=== PATIENT | female | born 1935 | race Caucasian/White ===

== ENCOUNTER 2016-08-24 15:16 | Inpatient (IN) | payer MEDICARE ==
--- NOTE | ~2016-08-24 | DS ---
Unit #: [id number] #: [id number] Patient: WILLIAM JHAVERI [id number] [address] [address] [id number] I MR#: [id number] NAME: WILLIAM JHAVERI ROOM: [facility] Age: 80 Sex: F Admission Date: 08/24/2016 : 1935 Discharge Date: 08/30/2016 Attending Physician: Yulissa Bradford M.D. Primary Care Physician: Josue Monreal M.D. DISCHARGE SUMMARY SUMMARY DATE OF 08/30/2016. PRINCIPAL DIAGNOSES 1. Acute on chronic hypoxic respiratory failure, multifactorial. 2. Aspiration pneumonia left lower lobe. 3. 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 4. Severe kyphoscoliosis. 5. Acute exacerbation of chronic obstructive pulmonary disease. 6. Acute on chronic systolic congestive heart failure with ejection fraction of 45%-50%. 7. Severe dysphagia. 8. Recurrent mucus plugging. 9. Tracheal tear following intubation. 10. Hypokalemia. 11. Hypomagnesemia. 12. Normocytic anemia. 13. Moderate dementia. 14. Immobility. 15. Rheumatoid arthritis. 16. History of SVT. 17. Hypertension. 18. Gastroesophageal reflux disease. CONSULTANTS Dr. Strange, pulmonology. PROCEDURES PERFORMED 1. STAT intubation on 08/27/2016. 2. Bronchoscopy on 08/27/2016 with a tear, 2 x 3 cm in mid trachea. Bilateral thick mucus plugs noted, primarily in the left lower lobe. 3. Right IJ central venous catheter placement, which occurred without complication. DIAGNOSTIC DATA IMAGING: Chest x-ray on 08/24/2016 with findings of severe kyphoscoliosis. Density of the bilateral lung bases noted. These are consistent with atelectasis versus infiltrate. CLINICAL HISTORY/HOSPITAL COURSE Ms. Jhaveri was a nice 80-year-old female who was a long-term resident of [facility]. She presented to the emergency department Unit #: [id number] #: [id number] Patient: WILLIAM JHAVERI feeling short of breath. Please refer to history and physical for further details. Chest x-ray in the emergency department revealed atelectasis versus infiltrate. White blood cell count was found to be only mildly elevated at 10.8 and lactic acid was normal. The patient was given vancomycin, Zosyn, tobramycin in the emergency room and was subsequently admitted. The patient was initially admitted to intermediate level, but unfortunately developed some worsening hypoxia and was placed in the ICU. Unfortunately, despite aggressive suctioning and antibiotic administration the patient abruptly developed mucus plugging on the , requiring emergent intubation. Bronchoscopy was done and mucus plugs were removed. The patient did well on the ventilator and was subsequently extubated on the . However, approximately one hour following extubation the patient developed recurrent increasing dyspnea, even though her oxygen saturations were in the mid to high 90s on 4 liters. She also had significant respiratory secretions. The patient's condition was discussed extensively with the family. Ultimately they opted for comfort measures, including full DNR including a do not intubate. The patient was made comfortable and subsequently on 08/30/2016 at 04:13 in the morning. Dictated by... Yulissa Bradford M.D. MILTON/raj TD: 08/30/2016 10:15 JOB #: [id number] DISCHARGE SUMMARY X Yulissa Bradford MD DISCHARGE SUMMARY
--- NOTE | ~2016-08-24 | HP ---
Unit #: [id number] #: [id number] Patient: WILLIAM JHAVERI [id number] [facility]. [place], [place] [address] [id number] I MR#: [id number] NAME: WILLIAM JHAVERI ROOM: [address] Age: 80 Sex: F Admission Date: 08/24/2016 : 1935 Attending Physician: Jaye Gaytan M.D. Primary Care Physician: Josue Monreal M.D. HISTORY AND PHYSICAL CHIEF COMPLAINT Short of air. HISTORY OF PRESENT ILLNESS The patient is a 80-year-old female with a past medical history of dysphagia, congestive heart failure, SVT, rheumatoid arthritis, hypertension, osteoarthritis, who presented to the emergency department from the senior living for evaluation of the above. History is obtained from discussion with ER staff, chart review, as well as from the patient. I also spoke with the patient's daughters who are at bedside. Apparently, she was sent from the senior living for increasing shortness of breath and low oxygen saturations. Per EMS report, oxygen saturations were in the mid 70s before starting the patient on oxygen. Upon arrival in the emergency department, the patient's oxygen saturation was 96% on 4 liters. Of note, the patient was hospitalized at [facility] 06/28 through 07/07/2016 for acute respiratory failure requiring intubation thought to be secondary to aspiration pneumonia. Family states that she has not really ever returned to baseline as far as her breathing status. She has had persistent congestion and cough. She has not been taking anything by mouth. She does have a PEG tube. They are not aware of any fever at the senior living. In the emergency department, chest x-ray was done and showed increased airspace disease involving the left base concerning for possible superimposed pneumonia. Laboratory notable for white blood cell count of 10.8; lactic acid 1.5. She was given vancomycin, Zosyn, and tobramycin in the emergency department. She is being admitted to [facility] for evaluation and further treatment. PAST MEDICAL HISTORY 1. Admission to [facility] 06/28 through 07/07/2016 for respiratory failure requiring intubation. She was septic from pneumonia, likely aspiration. 2. History of dysphagia, status post PEG tube placement. 3. Congestive heart failure. The patient had an echocardiogram during the last admission in June 2016 that showed an ejection fraction of 45% to 50% per the discharge summary. She was apparently seen by Dr. Jimenez for SVT. 4. History of SVT. 5. Rheumatoid arthritis. 6. Hypertension. 7. Osteoarthritis. 8. GERD. Unit #: [id number] #: [id number] Patient: WILLIAM JHAVERI 9. COPD not on home oxygen. Patient has seen Dr. Hutchinson in the past. PAST SURGICAL HISTORY 1. PEG tube placement. 2. Thyroid surgery. 3. Hysterectomy. 4. Left hip surgery. ALLERGIES No known allergies. HOME MEDICATIONS 1. Zyrtec 5 mg daily. 2. Artificial Tears q.4 h. p.r.n. 3. Aspirin 81 mg daily. 4. Vitamin B12 1000 mcg monthly. 5. Donepezil 10 mg h.s. 6. Ipratropium nebulized q.i.d. p.r.n. 7. Multivitamin daily. 8. Tylenol 650 q.4 h. p.r.n. 9. Mucinex 600 mg daily p.r.n. SOCIAL HISTORY The patient is at a senior living. She walks with a walker. No tobacco or alcohol use. The patient is a DNR but would want to be intubated for respiratory compromise. I confirmed this with the patient's daughter and power of attorney recruiter. FAMILY HISTORY Notable for coronary artery disease in her brother. REVIEW OF SYSTEMS A complete review of systems is negative except as indicated in the HPI. Family states that at baseline the patient would not be oriented to time. PHYSICAL EXAMINATION VITAL SIGNS: Temperature 98.2, pulse 89, respirations 18, blood pressure 143/82, oxygen saturation is 96% on 4 liters but was reportedly in the 70s on room air at the senior living. GENERAL: The patient is a female who is awake and alert. HEENT: Head is atraumatic. Mucous membranes are moist. NECK: Supple. Trachea is midline. LUNGS: Scattered rhonchi. Breathing is mildly labored. HEART: Regular rate and rhythm. ABDOMEN: Soft. Bowel sounds present in all four quadrants. She does have a PEG tube. EXTREMITIES: Nontender with no pedal edema. NEUROLOGIC: Patient is awake and alert. She is oriented to person and place at baseline per family. She is moving all extremities. PSYCHIATRIC: Mood and affect are normal. Patient is cooperative. SKIN OF EXAMINED AREAS: Warm and dry. DIAGNOSTIC STUDIES LABORATORY: Arterial blood gas shows pH 7.401, pCO2 of 44, pO2 of 82.7 on 4 liters. Complete blood count notable for white blood cell count of 10.8. Troponin less than 0.05. Lactic acid 1.5. Comprehensive metabolic panel is notable for chloride of 97, glucose 114, BUN 29, creatinine 0.8. Unit #: [id number] #: [id number] Patient: WILLIAM JHAVERI IMAGING: Chest x-ray shows chronic densities at bilateral bases with increased airspace disease involving the left base concerning for superimposed pneumonia. CARDIOVASCULAR: EKG shows normal sinus rhythm with sinus arrhythmia at a rate of 79 beats per minute. ASSESSMENT The patient is a 80-year-old female with: 1. Acute respiratory failure, hypoxic. 2. Healthcare-associated pneumonia. The patient received vancomycin, Zosyn and tobramycin in the emergency department. 3. Dysphagia, status post PEG tube placement. 4. Chronic obstructive pulmonary disease. The patient is not on home oxygen. She has seen Dr. Hutchinson in the past. 5. History of supraventricular tachycardia. 6. Congestive heart failure with ejection fraction as noted above. 7. Rheumatoid arthritis. 8. Hypertension. 9. Osteoarthritis. 10. Gastroesophageal reflux disease. PLAN 1. Admit to intermediate level. 2. N.p.o. 3. Normal saline at 75 mL per hour. 4. Supplemental oxygen 2-4 liters to maintain saturations greater than 92%. 5. Blood cultures x2. 6. Sputum culture and sensitivity. 7. Procalcitonin level. 8. Streptococcal and legionella urine antigens. 9. Vancomycin IV, tobramycin IV, Zosyn IV pending further workup. 10. DuoNeb q.4 h. 11. Tylenol 650 per PEG tube q.6 h. p.r.n. 12. Strict I's and O's. 13. Daily weights. 14. Serial cardiac enzymes. 15. Consult Dr. Hutchinson regarding acute respiratory failure. 16. Check BNP. 17. Repeat labs in the morning. 18. SCDs for DVT prophylaxis. 19. Additional workup and consultants based on above. Dictated by Barry Singh/lisa TD: 08/24/2016 22:57 JOB #: [id number] Unit #: [id number] #: [id number] Patient: WILLIAM JHAVERI HISTORY AND PHYSICAL X Jaye Gaytan MD HISTORY AND PHYSICAL
--- NOTE | ~2016-08-24 | OR ---
Unit #: [id number] #: [id number] Patient: WILLIAM JHAVERI [id number] [facility]. [place], [place] [address] [id number] I MR#: [id number] NAME: WILLIAM JHAVERI ROOM: [facility] Date of Procedure: 08/27/2016 Admission Date: 08/24/2016 Surgeon: Juanjo Strange M.D. : 1935 Attending Physician: Yulissa Bradford M.D. Primary Care Physician: Josue Monreal M.D. PROCEDURE OPERATIVE NOTE PROCEDURE PERFORMED Diagnostic and therapeutic bronchoscopy with bronchial washing. INDICATIONS FOR PROCEDURE Respiratory failure and pneumonia. FINDINGS 1. Tear, 2 x 3 cm, in the mid trachea noted to be oozing fresh blood. 2. Bilateral thick mucous plugs mainly noted in the left lower lobe. COMPLICATIONS None. DESCRIPTION OF PROCEDURE An informed consent was obtained from the patient's daughter after explaining the benefits and risks of this procedure. Patient was prepped and positioned in proper way. Then, the bronchoscope was advanced through the ET tube to the level of the jaron and then into the right main bronchus and the right upper lobe, right lower lobe, and right middle lobe were examined; which appeared erythematous with large mucous plug in the right lower lobe, which was aspirated and lavaged. Then, bronchoscope was retracted and then readvanced into the left main bronchus and the left upper lobe, lingula, and left lower lobe were examined; which appeared also erythematous with mucous plugs in the left lower lobe and slightly in the lingula. The bronchoscope was retracted to the level of the jaron and then a large tear was noted covered by the ET tube. I pulled the ET tube slightly up and evaluated the trachea and, again, the tear was noted about to be 2 x 3 cm in size and oozing fresh blood. The ET tube again was passed beyond the tear for mainly tamponade and was placed 1.5 cm above the jaron. The bronchoscope was retracted out then and patient tolerated her procedure well with no immediate complications. Dictated by... Juanjo Strange M.D. EA/bharat Unit #: [id number] #: [id number] Patient: WILLIAM JHAVERI TD: 08/28/2016 07:20 JOB #: [id number] PROCEDURE OPERATIVE NOTE X JUANJO SALINAS MD PROCEDURE OPERATIVE NOTE
--- NOTE | ~2016-08-24 | CR72 ---
[facility] A Service of [facility] & [facility] RADIOLOGY TEXT RESULTS PATIENT: WILLIAM JHAVERI LOCATION: [place] [address] : [birth year] UNIT #: [id number] AGE: [address]: Yulissa Bradford MD SEX: F ORDER DR: [id number] [facility] [address] [place], [place] [address] [id number] I MR#: [id number] Acc #: [id number] NAME: WILLIAM JHAVERI : 1935 SEX: F STUDY DATE/TIME: 08/27/2016 6:35 UNIT: [facility] ROOM: [facility] STUDY DESCRIPTION: CR Chest Single View Portable Attending Physician: Yulissa Bradford M.D. Ordering Physician: Jaey Gaytan M.D. Primary Care Physician: Josue Monreal M.D. MEDICAL IMAGING REPORT This report is preliminary unless electronic signature is present EXAM Portable chest, 08/27/2016. HISTORY Respiratory failure. Pneumonia for 3 days. FINDINGS Today's portable view of the chest is compared with yesterday's study. The atelectasis in the left lung has diminished significantly. Now, there is only left base atelectasis, whereas before, most of the left lung was dense. There are low lung volumes. The right lung is clear. There is marked kyphosis. Dictated by... Josef Kwon M.D. THIS IS AN ELECTRONICALLY VERIFIED REPORT Josef Kwon M.D. at 08/27/2016 2:02 PM DAPHNEY/ana TD: 08/27/2016 13:48 JOB #: [id number] MEDICAL IMAGING REPORT COPY
--- NOTE | ~2016-08-24 | OR ---
Unit #: [id number] #: [id number] Patient: WILLIAM JHAVERI [id number] [address] [id number] I MR#: [id number] NAME: WILLIAM JHAVERI ROOM: [facility] Date of Procedure: 08/27/2016 Admission Date: 08/24/2016 Surgeon: Juanjo Strange M.D. : 1935 Attending Physician: Yulissa Bradford M.D. Primary Care Physician: Josue Monreal M.D. PROCEDURE OPERATIVE NOTE PROCEDURE Right internal jugular central venous catheter placement with ultrasound guidance. INDICATION FOR PROCEDURE Respiratory distress. COMPLICATIONS None. DESCRIPTION OF THE PROCEDURE An informed consent was obtained from the patient's daughter after explaining the benefits and risks of this procedure. The patient was prepped and positioned in proper way and patient was cleaned with chlorhexidine and body drape was applied. With the ultrasound guidance, a needle was inserted in the right IJ until blood flow was obtained and a guidewire was inserted and the needle was removed. Then, a dilator was used to create a track for the catheter which was inserted over the guidewire and the guidewire was removed. The catheter was flushed appropriately and sutured in place. Then, Biopatch and clean dressing were applied. Stat chest x-ray confirmed placement with no immediate complications. Dictated by... Juanjo Strange M.D. EA/darius TD: 08/28/2016 07:36 JOB #: [id number] Unit #: [id number] #: [id number] Patient: WILLIAM JHAVERI PROCEDURE OPERATIVE NOTE X JUANJO SALINAS MD X PROCEDURE OPERATIVE NOTE
--- NOTE | ~2016-08-24 | FU ---
[facility] Nutrition Therapy DATE: 08/29/16 Patient: WILLIAM JHAVERI Physician: MAMTA Address: [address] [place] [address] Room/Bed: [address], Zip: [place] [address] Admit Date: 08/24/16 Date of : [birth year] Height: 4 10 Weight: 105 48 NUTRITION MONITORING/FOLLOW-UP: Reason: Nutrition follow up Anthropometrics: Ht: 4'10" ADm wt: 45.5 kg BMI: 21.0 Labs: K+ 2.9 Gluc 130 Ca++ 7.3 Mg++ 1.4 Accuchecks 116-125 BNP 293 Meds: Vitamin B12, MgSO4, KCl, levophed, MVI with minerals I&O's: 3971/780, last BM 08/26, PEG Skin: Bruise BUE Redness to coccyx/ LUE Estimated Nutrition Needs: 0444-6805 kcals (25-30 kcals/kg) 55-68 grams protein (1.2-1.5 grams/kg) Assessment: Chart reviewed, events noted. Pt was extubated this AM, and enteral nutrition was held for that. RN reports that prior to extubation, the pt's enteral nutrition was increased to goal of Jevity 1.5 @ 40 mL/hr. Per pump history report this AM, the pt has received 72% of goal volume of enteral nutrition over the past 24 hrs. Pt Dx: Inadequate enteral nutrition infusion RT EN recently advanced to goal and being AEB enteral nutrition is being held at this time. Intervention: 1. Enteral nutrition Monitoring, Evaluation and Goals: NOT BEING MET/ IN PROGRESS 1. Enteral nutrition; provide >80% estimated goal volume 2. Labs; WNL 3. Weight; prevent weight loss, promote lean body mass preservation 4. Skin; prevent breakdown Recommendations: 1. Once medically feasible, resume enteral nutrition with Jevity 1.5 @ 40 mL/hr x 24 hrs. 2. Ensure the HOB is upright at a minimum of 30-45 degrees during EN administration. 3. Replete electrolytes to WNL. [facility] Nutrition Therapy DATE: 08/29/16 Patient: WILLIAM JHAVERI Physician: MAMTA Address: [address] [place] [address] Room/Bed: [address], Zip: [place] [address] Admit Date: 08/24/16 Date of : [birth year] Height: 4 10 Weight: 105 48 Status: Pt is at moderate nutritional risk. RD will continue to follow. Respectfully, JERALD WOOD RD, LD Food and Nutritional Services [facility] cc: client file
--- NOTE | ~2016-08-24 | OR ---
Unit #: [id number] #: [id number] Patient: WILLIAM JHAVERI [id number] [address] [place], [place] [address] [id number] I MR#: [id number] NAME: WILLIAM JHAVERI ROOM: [facility] Date of Procedure: 08/27/2016 Admission Date: 08/24/2016 Surgeon: Juanjo Strange M.D. : 1935 Attending Physician: Yulissa Bradford M.D. Primary Care Physician: Josue Monreal M.D. PROCEDURE OPERATIVE NOTE PROCEDURE PERFORMED Direct laryngoscope intubation. INDICATIONS FOR PROCEDURE Respiratory distress. PREMEDICATIONS 1. Etomidate 20 mg IV x1. 2. Succinylcholine 50 mg IV x1. COMPLICATIONS None. DESCRIPTION OF PROCEDURE An informed consent was waived as the procedure was emergent and the patient was full code. Patient was prepped and positioned in a proper way and then, after premedicated with etomidate and succinylcholine, a size 3 Quiles blade was inserted and a good view of the vocal cord was obtained. View (1) was obtained. Then, ET tube, size 7.5 cm, was inserted past the vocal cords with no complications. Good bilateral breath sounds were auscultated and then good CO2 color monitor change was noted. Stat chest x-ray confirmed placement with no immediate complications. Dictated by... Juanjo Strange M.D. EA/bharat TD: 08/28/2016 07:10 JOB #: [id number] Unit #: [id number] #: [id number] Patient: WILLIAM JHAVERI PROCEDURE OPERATIVE NOTE X JUANJO SALINAS MD PROCEDURE OPERATIVE NOTE
--- NOTE | ~2016-08-24 | CR72 ---
[facility] A Service of [facility] & [facility] RADIOLOGY TEXT RESULTS PATIENT: WILLIAM JHAVERI LOCATION: [facility] [address] : [birth year] UNIT #: [id number] AGE: [address]: Henry Santoro MD SEX: F ORDER DR: [id number] [facility] [address] [place], [place] [address] [id number] I MR#: [id number] Acc #: [id number] NAME: WILLIAM JHAVERI : 1935 SEX: F STUDY DATE/TIME: 08/24/2016 14:55 UNIT: [facility] ROOM: [address] STUDY DESCRIPTION: CR Chest Single View Portable Attending Physician: Jaye Gaytan M.D. Ordering Physician: Ed Gael Holley M.D. Primary Care Physician: Josue Monreal M.D. MEDICAL IMAGING REPORT This report is preliminary unless electronic signature is present EXAM AP radiograph of the chest HISTORY Short of air. Short of air today. COPD, high blood pressure. AP radiograph of the chest presented. COMPARISON CT examination 07/08/2016 and chest radiograph 07/03/2016. FINDINGS Severe kyphoscoliosis. No definite acute bony abnormality. The heart is stably enlarged. Mediastinal contours stable. Extensive atherosclerotic arterial calcifications. Lung volumes low secondary to the marked kyphoscoliosis. Chronic densities at the bilateral lung bases probably atelectatic in nature. Some components of chronic fibrotic change may be present. Increased airspace disease at the left lung base concerning for possible superimposed pneumonia or an increase in atelectasis. Weight should be given the clinical assessment. Areas of linear scarring or atelectasis in the left midlung zone. Given the density at the left lung base, left pleural effusion not excluded. No definite right pleural effusion and no pneumothorax. Visualized bowel gas pattern in upper abdomen normal. There is a gastrostomy tube in place, partially visualized. Stable appearance of large hiatal hernia. Dictated by... Yossi Ortega M.D. THIS IS AN ELECTRONICALLY VERIFIED REPORT Yossi Ortega M.D. at 08/25/2016 8:[address] [facility] A Service of [facility] & [facility] RADIOLOGY TEXT RESULTS PATIENT: WILLIAM JHAVERI LOCATION: [facility] [address] : [birth year] UNIT #: [id number] AGE: [address]: Henry Santoro MD SEX: F ORDER DR: CARLOS/nomi TD: 08/24/2016 21:55 JOB #: [id number] MEDICAL IMAGING REPORT COPY
--- NOTE | ~2016-08-24 | EKG ---
PATIENT: WILLIAM JHAVERI UNIT #: [id number] Ventricular Rate: 79 BPM Atrial Rate: 79 BPM P-R Interval: 126 ms QRS Duration: 102 ms Q-T Interval: 408 ms QTC Calculation(Bezet): 467 ms P [place]: 9 degrees Calculated R [place]: -17 degrees Calculated T [place]: 121 degrees Diagnosis Line: Normal sinus rhythm with sinus arrhythmia Diagnosis Line: Minimal voltage criteria for LVH, may be normal Diagnosis Line: variant Diagnosis Line: Inferior infarct , age undetermined Diagnosis Line: ST and T wave abnormality, consider lateral ischemia Diagnosis Line: Abnormal ECG Diagnosis Line: When compared with ECG of 28-JUN-2016 06:14, Diagnosis Line: Significant changes have occurred Diagnosis Line: Confirmed by ROSALIA OLEA MD ([id number]) on 08/24/2016 Diagnosis Line: 4:49:01 PM INTERPRETING MD: LEFTY BUI
--- NOTE | ~2016-08-24 | A ---
[facility] Nutrition Therapy DATE: 08/25/16 Patient: WILLIAM JHAVERI Physician: MAMTA Address: [address] [place] [address] RD Room/Bed: [address] [place] [address], Zip: [place] [address] Admit Date: 08/24/16 Date of : 36 Height: 4 6 Weight: 100 45.5 NUTRITIONAL ASSESSMENT: REASON: Consult re: EN recommendations Admitting Dx: 80 y/o female admitted from custodial with SOA PMH: Dysphagia s/p PEG, CHF, HTN, OA, RA, GERD, COPD Anthropometrics: Ht: 54", Wt: 45.5 kg, BMI: 24.1 Labs: 08/24: Glucose 114, BUN 29 Meds: Abx, Nacl, MVI, Vit B12 I/O & Bowel function: No shift or admission assessment available yet Skin Integrity: No shift or admission assessment available yet Estimated Nutrition Needs: 5621-6661 kcals per day (25-30 kcals/kg) 55-64 g protein per day (1.2-1.4 g/kg) Fluids consistent with kcal needs or per MD Assessment: Chart reviewed, events noted. See admitting dx and PMH as stated above. Patient had recent admission to this facility 06/28-07/07/16 due to respiratory failure that required intubation, CXR showed possible PNA. No malnutrition risk assessment or shift/admission assessments available yet, RD reviewed past RD note and H&P, pt has PEG. RD received consult for EN recs while patient still in ED, awaiting bed. Spoke with ED nurse who reported the patient will be going to ICU once bed available. Per her H&P she has not been eating by mouth although she has been on a pureed diet at the [facility] in the past, current diet order states NPO. RD gave ED nurse verbal EN recs over the phone: Jevity 1.5 start @ 20 ml and increase by 10 ml q 4 hours until goal rate of 40 ml/hr is reached. ED nurse took RD's name and credentials down. See recs below, will follow once patient is transferred to ICU. Dx: Inadequate protein energy intake r/t nutrition not yet initiated AEB NPO status, need for EN. Intervention: Jevity 1.5 goal 40 ml/hr Monitoring, Evaluation and Goals: 1. Nutrition support consistent with estimated needs. [facility] Nutrition Therapy DATE: 08/25/16 Patient: WILLIAM JHAVERI Physician: MAMTA Address: [address] [place] [address] Room/Bed: [address] [facility], Zip: [place] [address] Admit Date: 08/24/16 Date of : 36 Height: 4 6 Weight: 100 45.5 2. Prevent unintentional weight loss. 3. Labs; WNL. 4. Skin; WNL. 5. GI; WNL. Monitor: Per protocol, criteria to determine if above goals met Recommendations: 1. Agree with RD recommendations for enteral nutrition based on 06/28/16 assessment. Once able start enteral nutrition with Jevity 1.5 @ 20 ml and increase by 10 ml q 4 hours until goal rate of 40 ml/hr is reached, to provide 1440 kcals, 61 g protein and 730 ml water. Once at goal rate add free water flushes per MD. 2. Patient is to remain NPO. RD will follow hospital course once admitted Moderate nutrition risk Respectfully, Penny Kyle, MAYE, LD [employer] [facility] [employer] cc: client file
--- NOTE | ~2016-08-24 | CR72 ---
[facility] A Service of [facility] & [facility] RADIOLOGY TEXT RESULTS PATIENT: WILLIAM JHAVERI LOCATION: [address] : 36 UNIT #: [id number] AGE: [address]: Yulissa Bradford MD SEX: F ORDER DR: [id number] [facility] [address] [place], [place] [address] [id number] I MR#: [id number] #: [id number] NAME: WILLIAM JHAVERI : 1935 SEX: F STUDY DATE/TIME: 08/28/2016 7:11 UNIT: [facility] ROOM: [facility] STUDY DESCRIPTION: CR Chest Single View Portable Attending Physician: Yulissa Bradford M.D. Ordering Physician: Yulissa Bradford M.D. Primary Care Physician: Josue Monreal M.D. MEDICAL IMAGING REPORT This report is preliminary unless electronic signature is present EXAM Frontal chest, 08/28/2016. INDICATIONS 80-year-old female with aspiration pneumonia, respiratory failure, short of air, symptoms began today, COPD. TECHNIQUE Frontal chest was performed. COMPARISON 08/27/2016 FINDINGS Right-sided central line unchanged. ET tube tip is about 1.3 cm above the level of the jaron and unchanged for technical factors. The heart is enlarged, but stable. Lung volumes are low. There are bilateral effusions with bibasilar atelectasis or infiltrates. Trace fluid or atelectasis associated with a minor fissure on the right. Opacities in the upper lung zone on the left and, to a lesser extent, on the right demonstrate slight improvement on the left and probably no change on the right. No pneumothorax. There is underlying scoliosis. IMPRESSION 1. Tubes and lines appear to be in satisfactory position. No pneumothorax. 2. Cardiomegaly with bibasilar atelectasis or infiltrates and superimposed effusions. 3. Slight improvement of opacities in the upper lung zone on the left. No significant change on the right. 4. Significant scoliosis. This probably accounts for what appears to be artifactual foreshortening of the tip of the ET tube with respect to the jaron. It still is above the level of the jaron as described STS. [facility] A Service of [facility] & [facility] RADIOLOGY TEXT RESULTS PATIENT: WILLIAM JHAVERI LOCATION: [facility]3 C[facility]CU3-21 : 36 UNIT #: [id number] AGE: [address]: Yulissa Bradford MD SEX: F ORDER DR: above. Dictated by... Miguel Ackerman M.D. THIS IS AN ELECTRONICALLY VERIFIED REPORT Miguel Ackerman M.D. at 08/28/2016 4:38 PM [place] TD: 08/28/2016 11:19 JOB #: [id number] MEDICAL IMAGING REPORT COPY
--- NOTE | ~2016-08-24 | CO ---
Unit #: [id number] #: [id number] Patient: WILLIAM JHAVERI [id number] [address] [place], [place] [address] [id number] I MR#: [id number] NAME: WILLIAM JHAVERI ROOM: [facility] Age: 80 Sex: F Admission Date: 08/24/2016 : 1935 Attending Physician: Henry Santoro M.D. Primary Care Physician: Josue Monreal M.D. Consultation Date: 08/25/2016 CONSULTATION REPORT REASON FOR CONSULT ICU management. CHIEF COMPLAINT Shortness of breath. HISTORY OF PRESENT ILLNESS This is a 80-year-old female with unfortunate past medical history significant for rheumatoid arthritis, severe deconditioning, congestive heart failure and dysphagia who presented to the emergency room from the long-term for evaluation of shortness of breath and respiratory distress. The patient is currently waking up to verbal stimuli and answering simple questions but unable to provide any history. Per the medical record, the patient was noted to be more dyspneic over the last few days with low oxygen saturation. Per EMS, the patient's sat was in the mid 70s when they arrived. The patient has a G-tube for feeding, but she is well known to aspirate. REVIEW OF SYSTEMS Unable to obtain. PAST MEDICAL HISTORY 1. Recurrent aspiration pneumonia. 2. Dysphagia. 3. Congestive heart failure. 4. History of SVT. 5. Rheumatoid arthritis. 6. Hypertension. 7. Osteoarthritis. 8. GERD. 9. COPD. PAST SURGICAL HISTORY 1. PEG tube placement. 2. Thyroid surgery. 3. Hysterectomy. 4. Left hip surgery. ALLERGIES No known drug allergies. Unit #: [id number] #: [id number] Patient: WILLIAM JHAVERI HOME MEDICATIONS 1. Zyrtec. 2. Artificial Tears. 3. Aspirin. 4. Vitamin B12. 5. Ipratropium. 6. Multivitamin. 7. Tylenol. 8. Mucinex. SOCIAL HISTORY The patient is a long-term resident. She walks with a walker. No history of alcohol or drug abuse. CODE STATUS The patient is DNR, but family is okay with vent support if she has a chance. FAMILY HISTORY Coronary artery disease. PHYSICAL EXAMINATION VITAL SIGNS: Blood pressure 143/82, oxygen saturation is 96. GENERAL: The patient appears in some distress. HEENT: Atraumatic, normocephalic. PERRLA. EOMI. NECK: Supple. No JVD. No lymphadenopathy. CHEST: Bilateral coarse rhonchi and crackles. HEART: S1, S2. No murmur, gallops or rubs. ABDOMEN: Soft, nontender. Feeding tube in place. EXTREMITIES: Contracted but no edema. CARE TRANSPORT NURSE: The patient is lethargic, but she is arousable to verbal stimuli. She answers simple questions, but she is unable to provide any consistent history. DIAGNOSTIC STUDIES LABS: BNP is 235. Troponin is 0.1. Creatinine is 0.8. White blood count 10.8. IMAGING: Chest x-ray is concerning for pneumonia, likely aspiration. ASSESSMENT 1. Acute hypoxic respiratory failure. 2. Pneumonia, likely aspiration/gram-negative. 3. Malnutrition. 4. Chronic anemia. 5. Deconditioning. PLAN 1. The patient is ill appearing and in respiratory distress. She is on high oxygen support. 2. She will be watched in the ICU very closely. Family wants the patient intubated for respiratory reasons, but they want her DNR. 3. Broad-spectrum antibiotics pending culture. 4. Will hold tube feeds, and when we start, we have to challenge her very softly and ensure that she has an aggressive bowel regimen. 5. Continue IV hydration and follow urine output. 6. Bronchodilator and mucolytics. 7. DVT prophylaxis. Unit #: [id number] #: [id number] Patient: WILLIAM JHAVERI NOTE: Critical care time spent on this patient was 31 minutes. Dictated by... Barry Person TD: 08/26/2016 09:40 JOB #: [id number] CONSULTATION REPORT X JUANJO SALINAS MD CONSULTATION REPORT
--- NOTE | ~2016-08-24 | CR72 ---
[facility] A Service of [facility] & [facility] RADIOLOGY TEXT RESULTS PATIENT: WILLIAM JHAVERI LOCATION: [address] : 36 UNIT #: [id number] AGE: [address]: Yulissa Bradford MD SEX: F ORDER DR: [id number] [facility] [address] [place], [place] [address] [id number] I MR#: [id number] Acc #: [id number] NAME: WILLIAM JHAVERI : 1935 SEX: F STUDY DATE/TIME: 08/27/2016 16:26 UNIT: [facility] ROOM: [facility] STUDY DESCRIPTION: CR Chest Single View Portable Attending Physician: Yulissa Bradford M.D. Ordering Physician: Thor Strange M.D. Primary Care Physician: Josue Monreal M.D. MEDICAL IMAGING REPORT This report is preliminary unless electronic signature is present EXAM Portable chest x-ray 08/28/2016 HISTORY Intubation. Central line placement. FINDINGS AP radiograph of the chest is compared to a study dated 08/27/2016 at 0635 hours. Patient has rather marked kyphoscoliosis. There is no acute-appearing bony abnormality. A right internal jugular central venous catheter terminates in the [id number] right atrium. For placement entirely within the superior vena cava, it should be withdrawn approximately 3 cm and reassessed radiographically. The tip of the endotracheal tube projects approximately 1 cm above the jaron. This somewhat distal termination may be in part artifactual and related to foreshortening caused by the patient's prominent kyphosis. Correlate clinically. This could best be further evaluated with true lateral view or steep oblique views. The heart is stably enlarged. The lungs are low in volume. Bronchovascular crowding. Abnormally increased interstitial densities extending from the central lung zones toward the periphery bilaterally. The appearance is not certain. The appearance is more pronounced and anticipated simply for low lung volumes and I favor that there is pulmonary edema with predominately interstitial involvement. There may be some minimal perihilar airspace involvement. Patient has a large hiatal hernia. There is dense left retrocardiac opacification probably related to soft tissue attenuation from the hiatal hernia, left basilar airspace disease., and left pleural fluid. There is no pneumothorax. Partially visualized gastrostomy tube has retention balloon at anticipated location of mid gastric body. [facility] A Service of [facility] RADIOLOGY TEXT RESULTS PATIENT: WILLIAM JHAVERI [facility] UNIT #: [id number] AGE: [address]: Yulissa Bradford MD SEX: F ORDER DR: Dictated by... Yossi Ortega M.D. THIS IS AN ELECTRONICALLY VERIFIED REPORT Yossi Ortega M.D. at 08/28/2016 5:26 PM Miguel TD: 08/28/2016 07:42 JOB #: [id number] MEDICAL IMAGING REPORT COPY
[2016-08-24 14:36] LABS: ARTERIAL BLD GAS O2 SATURATION 95.8 % (90.0-100.0); ARTERIAL BLOOD GAS CARBOXY HB 0.7 %sat (0.0-9.0); ARTERIAL BLOOD GAS HCO3 27.3 mmol/L; ARTERIAL BLOOD GAS MET HB 0.4 %sat (0.0-2.0); ARTERIAL BLOOD GAS PO2 82.7 mmHg (80.0-100); ARTERIAL BLOOD GAS pH 7.401 (7.350-7.450)
[2016-08-24 14:37] LABS: ARTERIAL BLOOD GAS ALLEN TEST NORMAL; ARTERIAL BLOOD GAS ART SITE RIGHT RADIAL; ARTERIAL BLOOD GAS DELIVERY NASAL CANNULA; ARTERIAL DRAW? YES
[~2016-08-24 15:16] MED LIST: ARICEPT PO; ARTIFICIAL TEAR15 M8 OU; ASPIRIN81 MG GT; BAYER CHEWABLE81 MG PO; BISOPROL PO; CLARITIN10 M2 PO; CLARITIN10 M3 DOB; COLACE PO; CYANOCOBAL1000 MCG/1 IJ; DOK100 MG PO; DONEPEZIL HCL10 MG GT; DONEPEZIL HCL10 MG PO; FIBERCON625 MG PO; IPRATROPIUM0.2 MG/ML NEB; LOVENOX30 MG/0.3 INJ; MIRALAX17 GM PO; MUCINEX100 MG/5 M GT; MULTI-VITAMIN1 EAC1 GT; NEURONTIN100 MG PO; NORCO1 TAB 10/3 PO; OCUVITE EYE +1 EACH PO; OCUVITE SOFTGEL1 CA1 PO; PLAQUENIL200 MG PO; PROTONIX PO; ST JOSEPH ASPIR81 M1 PO; TRAMADOL HCL50 M2 PO; TYLENOL325 M1 GT; ULTRAM PO; VITAMIN B-1000 MCG/1 INJ; ZEBETA5 M1 PO; ZITHROMAX PO; ZYRTEC5 M2 PO
[2016-08-24 15:20] LABS: BASOPHIL# 0.1 X10e3 (0-0.3); BASOPHIL% 0.6 % (0-2.5); HEMATOCRIT 36.8 % (35.0-45.0); HEMOGLOBIN 12.1 gm/dL (12.0-16.0); LYMPHOCYTE# 0.4 X10e3 (1.0-3.5); LYMPHOCYTE% 3.9 % (17.0-45.0); MEAN CELL VOLUME 86.4 FL (83-96); MEAN CORPUSCULAR HEMOGLOBIN 28.4 PG (28-34); MEAN CORPUSCULAR HGB CONC 32.8 g/dL (30-36); MEAN PLATELET VOLUME 9.5 FL (6.5-11.5); MONOCYTE# 0.8 X10e3 (0-1.0); MONOCYTE% 7.8 % (3.0-12.0); NEUTROPHIL# 9.4 X10e3 (1.5-7.1); NEUTROPHIL% 87.7 % (40-75); PLATELET COUNT 225 X10e3 (140-420); RED BLOOD COUNT 4.25 X10e (3.90-5.30); RED CELL DISTRIBUTION WIDTH 14.2 % (11.0-15.5); WHITE BLOOD COUNT 10.8 X10e3 (4.0-10.5)
[2016-08-24 15:22] LABS: DIFF IND NO
[2016-08-24 15:35] LABS: POC - CKMB 2.3 ng/mL (0.0-7.9); POC - TROPONIN 0.05 ng/mL (<=0.05)
[2016-08-24 15:44] LABS: ALBUMIN SERUM 3.8 g/dL (3.5-5.0); ALKALINE PHOSPHATASE 66 U/L (32-92); ALT (SGPT) 18 U/L (10-40); AST (SGOT) 24 U/L (10-42); BILIRUBIN,TOTAL 0.3 mg/dL (0.2-2.0); BLOOD UREA NITROGEN 29 mg/dL (9-23); BUN/CREATININE RATIO 36.25; CALCIUM SERUM 8.9 mg/dL (8.4-10.2); CARBON DIOXIDE 28 mmol/L (22-31); CHLORIDE 97 mmol/L (100-111); CREATININE SERUM 0.8 mg/dL (0.6-1.4); GLOM FILT RATE Estimated ABOVE60 mL/min (>60); GLUCOSE FASTING 114 mg/dL (70-110); POTASSIUM 4.4 mmol/L (3.5-5.1); PROTEIN TOTAL SERUM 7.4 g/dL (6.0-8.3); SODIUM 135 mmol/L (135-145)
[2016-08-24 15:49] LABS: BILIRUBIN, DIRECT <0.1 mg/dL (0.0-0.2); BILIRUBIN,INDIRECT 0.2 mg/dL (0.0-0.9)
[2016-08-24 18:55] LABS: POC - CKMB 1.8 ng/mL (0.0-7.9); POC - TROPONIN 0.06 ng/mL (<=0.05)
[2016-08-25 03:17] LABS: %MB 4.2 % (0.0-4.0); MB 3.1 ng/ml
[2016-08-25 07:46] LABS: %MB 2.6 % (0.0-4.0); MB 2.8 ng/ml
[2016-08-25 19:49] LABS: ARTERIAL BLOOD GAS CARBOXY HB 0.6 %sat (0.0-9.0); ARTERIAL BLOOD GAS MET HB 0.3 %sat (0.0-2.0)
[2016-08-25 19:50] LABS: ARTERIAL BLOOD GAS PCO2 51.7 mmHg (35.0-45.0)
[2016-08-25 19:51] LABS: ARTERIAL BLOOD GAS ALLEN TEST NORMAL; ARTERIAL BLOOD GAS ART SITE RIGHT RADIAL; ARTERIAL BLOOD GAS DELIVERY NON REBREATHER MASK; ARTERIAL DRAW? YES
[2016-08-26 05:26] LABS: HEMATOCRIT 32.7 % (35.0-45.0); HEMOGLOBIN 10.7 gm/dL (12.0-16.0); MEAN CELL VOLUME 87.3 FL (83-96); MEAN CORPUSCULAR HEMOGLOBIN 28.6 PG (28-34); MEAN CORPUSCULAR HGB CONC 32.7 g/dL (30-36); RED BLOOD COUNT 3.75 X10e (3.90-5.30); RED CELL DISTRIBUTION WIDTH 14.2 % (11.0-15.5); WHITE BLOOD COUNT 6.9 X10e3 (4.0-10.5)
[2016-08-26 06:48] LABS: BLOOD UREA NITROGEN 17 mg/dL (9-23); BUN/CREATININE RATIO 24.28; CALCIUM SERUM 8.4 mg/dL (8.4-10.2); CARBON DIOXIDE 25 mmol/L (22-31); CHLORIDE 110 mmol/L (100-111); CREATININE SERUM 0.7 mg/dL (0.6-1.4); GLOM FILT RATE Estimated ABOVE60 mL/min (>60); GLUCOSE FASTING 84 mg/dL (70-110); SODIUM 141 mmol/L (135-145)
[2016-08-27 05:50] LABS: BASOPHIL# 0.1 X10e3 (0-0.3); BASOPHIL% 0.8 % (0-2.5); EOSINOPHIL# 0.2 X10e3 (0-0.7); EOSINOPHIL% 2.6 % (0.0-7.0); HEMATOCRIT 34.4 % (35.0-45.0); HEMOGLOBIN 11.2 gm/dL (12.0-16.0); LYMPHOCYTE# 0.8 X10e3 (1.0-3.5); LYMPHOCYTE% 12.2 % (17.0-45.0); MEAN CELL VOLUME 86.2 FL (83-96); MEAN CORPUSCULAR HEMOGLOBIN 28.1 PG (28-34); MEAN CORPUSCULAR HGB CONC 32.6 g/dL (30-36); MONOCYTE# 0.5 X10e3 (0-1.0); MONOCYTE% 7.6 % (3.0-12.0); NEUTROPHIL# 5.2 X10e3 (1.5-7.1); NEUTROPHIL% 76.8 % (40-75); PLATELET COUNT 194 X10e3 (140-420); RED BLOOD COUNT 3.99 X10e (3.90-5.30); RED CELL DISTRIBUTION WIDTH 13.8 % (11.0-15.5); WHITE BLOOD COUNT 6.8 X10e3 (4.0-10.5)
[2016-08-27 05:59] LABS: DIFF IND NO
[2016-08-27 06:25] LABS: BLOOD UREA NITROGEN 14 mg/dL (9-23); CALCIUM SERUM 8.5 mg/dL (8.4-10.2); CARBON DIOXIDE 26 mmol/L (22-31); CHLORIDE 104 mmol/L (100-111); CREATININE SERUM 0.8 mg/dL (0.6-1.4); GLOM FILT RATE Estimated ABOVE60 mL/min (>60); GLUCOSE FASTING 112 mg/dL (70-110); POTASSIUM 3.8 mmol/L (3.5-5.1); SODIUM 135 mmol/L (135-145)
[2016-08-27 16:28] LABS: ARTERIAL BLOOD GAS CARBOXY HB 0.5 %sat (0.0-9.0); ARTERIAL BLOOD GAS HCO3 26.3 mmol/L; ARTERIAL BLOOD GAS MET HB 0.5 %sat (0.0-2.0); ARTERIAL BLOOD GAS PCO2 46.1 mmHg (35.0-45.0); ARTERIAL BLOOD GAS pH 7.365 (7.350-7.450)
[2016-08-27 16:29] LABS: ARTERIAL BLOOD GAS ALLEN TEST NORMAL; ARTERIAL BLOOD GAS ART SITE LEFT RADIAL; ARTERIAL BLOOD GAS DELIVERY VENT; ARTERIAL DRAW? YES
[2016-08-27 16:30] LABS: ARTERIAL BLOOD GAS VENT MODE A/C
[2016-08-27 17:13] LABS: URINE APPEARANCE CLEAR; URINE BILIRUBIN NEG (NEG); URINE BLOOD NEG (NEG); URINE COLOR YELLOW; URINE GLUCOSE NEG (NEG); URINE KETONE NEG (NEG); URINE LEUKOCYTE ESTERASE NEG (NEG); URINE NITRATE NEG (NEG); URINE PH 5.5 (5-8); URINE PROTEIN NEG (NEG)
[2016-08-27 17:45] LABS: CULTURE INDICATED? NO
[2016-08-28 04:15] LABS: ARTERIAL BLD GAS O2 SATURATION 96.2 % (90.0-100.0); ARTERIAL BLOOD GAS CARBOXY HB 0.8 %sat (0.0-9.0); ARTERIAL BLOOD GAS HCO3 26.6 mmol/L; ARTERIAL BLOOD GAS MET HB 0.9 %sat (0.0-2.0); ARTERIAL BLOOD GAS PO2 85.2 mmHg (80.0-100)
[2016-08-28 04:33] LABS: ARTERIAL BLOOD GAS ALLEN TEST NORMAL; ARTERIAL BLOOD GAS ART SITE LEFT RADIAL; ARTERIAL BLOOD GAS DELIVERY VENT; ARTERIAL BLOOD GAS VENT MODE AC; ARTERIAL DRAW? YES
[2016-08-28 05:15] LABS: BASOPHIL% 0.7 % (0-2.5); EOSINOPHIL# 0.1 X10e3 (0-0.7); EOSINOPHIL% 2.1 % (0.0-7.0); HEMATOCRIT 29.6 % (35.0-45.0); HEMOGLOBIN 9.9 gm/dL (12.0-16.0); LYMPHOCYTE# 1.2 X10e3 (1.0-3.5); MEAN CELL VOLUME 86.6 FL (83-96); MEAN CORPUSCULAR HEMOGLOBIN 28.9 PG (28-34); MEAN CORPUSCULAR HGB CONC 33.4 g/dL (30-36); MEAN PLATELET VOLUME 9.8 FL (6.5-11.5); MONOCYTE# 0.5 X10e3 (0-1.0); MONOCYTE% 8.8 % (3.0-12.0); NEUTROPHIL# 4.1 X10e3 (1.5-7.1); NEUTROPHIL% 68.4 % (40-75); PLATELET COUNT 170 X10e3 (140-420); RED BLOOD COUNT 3.42 X10e (3.90-5.30)
[2016-08-28 06:16] LABS: BLOOD UREA NITROGEN 15 mg/dL (9-23); BUN/CREATININE RATIO 18.75; CARBON DIOXIDE 26 mmol/L (22-31); CHLORIDE 106 mmol/L (100-111); CREATININE SERUM 0.8 mg/dL (0.6-1.4); GLOM FILT RATE Estimated ABOVE60 mL/min (>60); GLUCOSE FASTING 85 mg/dL (70-110); POTASSIUM 3.7 mmol/L (3.5-5.1); SODIUM 142 mmol/L (135-145)
[2016-08-28 06:34] LABS: DIFF IND NO
[2016-08-28 09:43] LABS: ARTERIAL BLD GAS O2 SATURATION 100.1 % (90.0-100.0)
[2016-08-29 03:47] LABS: ARTERIAL BLD GAS O2 SATURATION 98.4 % (90.0-100.0); ARTERIAL BLOOD GAS CARBOXY HB 0.5 %sat (0.0-9.0); ARTERIAL BLOOD GAS HCO3 25.7 mmol/L; ARTERIAL BLOOD GAS PCO2 39.1 mmHg (35.0-45.0); ARTERIAL BLOOD GAS pH 7.426 (7.350-7.450)
[2016-08-29 03:49] LABS: ARTERIAL BLOOD GAS ALLEN TEST NORMAL; ARTERIAL BLOOD GAS ART SITE LEFT RADIAL; ARTERIAL BLOOD GAS DELIVERY VENT; ARTERIAL BLOOD GAS VENT MODE AC; ARTERIAL DRAW? YES
[2016-08-29 04:47] LABS: BASOPHIL% 0.6 % (0-2.5); DIFF IND NO; EOSINOPHIL# 0.4 X10e3 (0-0.7); EOSINOPHIL% 5.9 % (0.0-7.0); HEMATOCRIT 27.1 % (35.0-45.0); LYMPHOCYTE# 0.9 X10e3 (1.0-3.5); LYMPHOCYTE% 14.7 % (17.0-45.0); MEAN CORPUSCULAR HEMOGLOBIN 28.5 PG (28-34); MEAN CORPUSCULAR HGB CONC 33.2 g/dL (30-36); MEAN PLATELET VOLUME 9.5 FL (6.5-11.5); MONOCYTE# 0.6 X10e3 (0-1.0); MONOCYTE% 9.5 % (3.0-12.0); NEUTROPHIL# 4.3 X10e3 (1.5-7.1); NEUTROPHIL% 69.3 % (40-75); PLATELET COUNT 153 X10e3 (140-420); RED BLOOD COUNT 3.16 X10e (3.90-5.30); WHITE BLOOD COUNT 6.2 X10e3 (4.0-10.5)
[2016-08-29 06:05] LABS: BLOOD UREA NITROGEN 10 mg/dL (9-23); BUN/CREATININE RATIO 16.66; CALCIUM SERUM 7.3 mg/dL (8.4-10.2); CARBON DIOXIDE 26 mmol/L (22-31); CHLORIDE 107 mmol/L (100-111); CREATININE SERUM 0.6 mg/dL (0.6-1.4); GLOM FILT RATE Estimated ABOVE60 mL/min (>60); GLUCOSE FASTING 130 mg/dL (70-110); SODIUM 137 mmol/L (135-145)
[2016-08-29 06:14] LABS: POTASSIUM 2.9 mmol/L (3.5-5.1)
== END 2016-08-30 04:13 | disposition expired | DRG 208 ==
LOC: CED 15:16 → CEDOF 19:00 → CICCU3 08-25 23:35
PROVIDERS: Emergency Medicine; Family Medicine; Internal Medicine; Internal Medicine Pulmonary Disease
PROC: 5A1945Z Respiratory Ventilation, 24-96 Consecutive Hours (ICD-10-PCS; 2016-08-27)
PROC: 05HM33Z Insertion of Infusion Device into Right Internal Jugular Vein, Percutaneous Approach (ICD-10-PCS; 2016-08-27)
PROC: B543ZZA Ultrasonography of Right Jugular Veins, Guidance (ICD-10-PCS; 2016-08-27)
PROC: 0BCB8ZZ Extirpation of Matter from Left Lower Lobe Bronchus, Via Natural or Artificial Opening Endoscopic (ICD-10-PCS; 2016-08-27)
PROC: 0BH18EZ Insertion of Endotracheal Airway into Trachea, Via Natural or Artificial Opening Endoscopic (ICD-10-PCS; principal; 2016-08-27 15:51)
DX: J96.21 Acute and chronic respiratory failure with hypoxia (principal); J69.0 Pneumonitis due to inhalation of food and vomit; I50.23 Acute on chronic systolic (congestive) heart failure; J44.0 Chronic obstructive pulmonary disease with (acute) lower respiratory infection; J44.1 Chronic obstructive pulmonary disease with (acute) exacerbation; S11.021A Laceration without foreign body of trachea, initial encounter; E46 Unspecified protein-calorie malnutrition; R13.10 Dysphagia, unspecified; T17.890A Other foreign object in other parts of respiratory tract causing asphyxiation, initial encounter; J98.4 Other disorders of lung; M41.9 Scoliosis, unspecified; I11.0 Hypertensive heart disease with heart failure; X58.XXXA Exposure to other specified factors, initial encounter; Y84.8 Other medical procedures as the cause of abnormal reaction of the patient, or of later complication, without mention of misadventure at the time of the procedure; Y92.239 Unspecified place in hospital as the place of occurrence of the external cause; E87.6 Hypokalemia; E83.42 Hypomagnesemia; D53.9 Nutritional anemia, unspecified; F03.90 Unspecified dementia, unspecified severity, without behavioral disturbance, psychotic disturbance, mood disturbance, and anxiety; M06.9 Rheumatoid arthritis, unspecified; K21.9 Gastro-esophageal reflux disease without esophagitis; Z66 Do not resuscitate; Z68.24 Body mass index [BMI] 24.0-24.9, adult; G62.9 Polyneuropathy, unspecified; Z90.710 Acquired absence of both cervix and uterus; J96.22 Acute and chronic respiratory failure with hypercapnia
CPT/HCPCS: 36415; 36600; 51702; 71010; 80048; 80076; 80200; 80202; 81003; 82308; 82550; 82553; 82803; 82947; 83605; 83735; 83880; 84132; 84484; 85025; 85027; 87040; 87070; 87102; 87116; 87205; 87206; 87449; 87899; 88108; 88305; 89190; 93005; 94002; 94003; 94640; 94760; 94761; 96361; 96365; 99285; J0330; J1650; J1940; J2060; J2250; J2270; J2543; J3010; J3260; J3370; J3475